=== PATIENT | female | born 1990 ===

== ENCOUNTER 2021-12-29 08:00 | Outpatient (CLI) | payer OTHER | END 2021-12-29 09:00 | disposition home or self-care (01) | LOC: LAB 08:00 → ADM 09:15 → CIR.AMB 01-01 07:52 → EDSTATUS 01-01 09:15 → CIR.AMB 01-01 15:46 | PROVIDERS: ATTEND Otolaryngology | DX: J35.1 Hypertrophy of tonsils (principal); J35.2 Hypertrophy of adenoids; G47.33 Obstructive sleep apnea (adult) (pediatric); Q38.5 Congenital malformations of palate, not elsewhere classified; Z20.828 Contact with and (suspected) exposure to other viral communicable diseases; R05.9 Cough, unspecified ==

== ENCOUNTER 2022-04-30 05:59 | Day surgery (SDC) | payer OTHER ==
[~2022-04-30] VITALS: Ht 162.6 cm; Wt 115.7 kg
== END 2022-04-30 13:45 | disposition home or self-care (01) ==
LOC: CIR.AMB 05:59
PROVIDERS: ATTEND Otolaryngology
DX: J35.2 Hypertrophy of adenoids (principal); J35.1 Hypertrophy of tonsils; G47.32 High altitude periodic breathing; Z20.822 Contact with and (suspected) exposure to COVID-19; Z88.8 Allergy status to other drugs, medicaments and biological substances; Z86.16 Personal history of COVID-19; Z99.89 Dependence on other enabling machines and devices; E66.01 Morbid (severe) obesity due to excess calories

== ENCOUNTER 2022-04-30 21:02 | Inpatient (IN) | payer OTHER ==
[~2022-04-30] VITALS: Ht 162.6 cm; Wt 93.0 kg
== END 2022-05-01 23:47 | disposition home or self-care (01) | DRG 921 ==
LOC: ER 21:02 → MEDJ 21:53 → SURH 21:53
PROVIDERS: ADMIT Otolaryngology; ATTEND Otolaryngology
DX: J95.831 Postprocedural hemorrhage of a respiratory system organ or structure following other procedure (principal); Z20.822 Contact with and (suspected) exposure to COVID-19